=== PATIENT | female | born 1970 | race Caucasian/White ===

== ENCOUNTER → 2017-03-22 | Outpatient (CLI) | payer MEDICAID | END | disposition home or self-care (01) | LOC: RAD 10:28 | PROVIDERS: ATTEND Neurological Surgery | DX: M51.36 Other intervertebral disc degeneration, lumbar region (principal); M51.27 Other intervertebral disc displacement, lumbosacral region; M47.896 Other spondylosis, lumbar region; M48.07 Spinal stenosis, lumbosacral region | CPT/HCPCS: 72110; 72148 ==

== ENCOUNTER 2017-04-09 15:16 | Emergency (ER) | payer MEDICAID ==
[~2017-04-09] VITALS: Ht 165.1 cm; Wt 109.5 kg
[2017-04-09 15:21] VITALS: BP 153/89
[2017-04-09] MEDS ORDERED: IBUPROFEN 200 MG TABLET ONE (16:28)
[2017-04-09] MEDS ORDERED: DIPH,PERTUSS(ACELL),TET VAC/PF 0.5 ML IM-VACC ONE ×2 (16:28→16:30)
[2017-04-09] MEDS ORDERED: BACITRACIN ZINC OINT 500U/GM, 0.9 GM ONE (16:30)
[2017-04-09] MEDS ORDERED: IBUPROFEN 200 MG TABLET PO ONE (16:30)
== END 2017-04-09 17:55 | disposition home or self-care (01) ==
LOC: ED 17:40
DX: S63.511A Sprain of carpal joint of right wrist, initial encounter (principal); S93.622A Sprain of tarsometatarsal ligament of left foot, initial encounter; W01.0XXA Fall on same level from slipping, tripping and stumbling without subsequent striking against object, initial encounter; Y93.01 Activity, walking, marching and hiking; Y99.8 Other external cause status; Y92.410 Unspecified street and highway as the place of occurrence of the external cause
CPT/HCPCS: 29125; 90471; 90715

== ENCOUNTER → 2017-07-20 | Outpatient (CLI) | payer MEDICAID | END | disposition home or self-care (01) | LOC: CARD 10:54 | PROVIDERS: ATTEND Family Medicine | DX: R20.1 Hypoesthesia of skin (principal); M25.561 Pain in right knee; M25.562 Pain in left knee; M25.571 Pain in right ankle and joints of right foot; M25.572 Pain in left ankle and joints of left foot | CPT/HCPCS: 95885; 95909 ==